=== PATIENT | female | born 1975 | race Caucasian/White ===

== ENCOUNTER → 2017-10-16 | Outpatient (CLI) | payer OTHER ==
[~2017-10-16] MED LIST: ESCI20; LISI10; METF500C; Norco 10-325 T1 EACH PO; Zofran Odt4 MG SL
== END | disposition home or self-care (01) ==
LOC: PLD 07:58 → LAB SHORT 07:58
DX: R87.619 Unspecified abnormal cytological findings in specimens from cervix uteri (principal)
CPT/HCPCS: 88305; 88342

== ENCOUNTER → 2018-03-30 | Outpatient (CLI) | payer OTHER | END | disposition home or self-care (01) | LOC: LAB EV 14:03 → LAB SHORT 14:03 | DX: L03.012 Cellulitis of left finger (principal) | CPT/HCPCS: 87070; 87075; 87077; 87147; 87186; 87205 ==

== ENCOUNTER 2018-06-01 18:41 | Emergency (ER) | payer OTHER ==
[~2018-06-01] VITALS: Ht 170.2 cm; Wt 97.5 kg
[2018-06-01] MEDS ORDERED: Prozac20 MG PO (19:16)
[2018-06-01 19:42] LABS: Source, Urine Clean Catch
[2018-06-01 19:50] LABS: Appearance, Urine Hazy (Clear); Bilirubin, Urine Neg (Neg); Blood, Urine 4+ (Neg); Color, Urine Yellow (P-Yellow); Glucose Qualitative, Urine 4+ (Neg); Ketones, Urine 3+ (Neg); Leukocyte Esterase, Urine 3+ (Neg); Nitrite, Urine Pos (Neg); Protein, Urine 2+ (Neg); Urobilinogen, Urine NORM (Normal)
[2018-06-01 20:00] LABS: White Blood Cells, Urine 25-50 /hpf (0-5)
[2018-06-01 20:01] LABS: Bacteria Mod /hpf; Squamous Epithelial Cells Few /hpf (Few)
[2018-06-01] MEDS ORDERED: Keflex500 MG PO (20:22)
== END 2018-06-01 20:50 | disposition home or self-care (01) ==
LOC: ER 18:41
PROVIDERS: Physician Assistant
DX: N39.0 Urinary tract infection, site not specified (principal); E11.9 Type 2 diabetes mellitus without complications; Z87.891 Personal history of nicotine dependence
CPT/HCPCS: 81001; 81025; 87077; 87086; 87186; 99283

== ENCOUNTER → 2018-09-05 | Outpatient (CLI) | payer OTHER ==
[~2018-09-05] MED LIST changes: +Keflex500 MG PO; +Prozac20 MG PO
[2018-09-05 18:05] LABS: Alanine Aminotransfer (ALT/SGP 21 U/L (12-78); Albumin, Blood 3.4 g/dL (3.4-5.0); Albumin/Globulin Ratio 0.9 (0.8-1.8); Alk Phos 88 U/L (40-126); Anion Gap 10 mmol/L (6-16); Aspartate Aminotrans (AST/SGOT 12 U/L (12-37); Bilirubin, Total 0.3 mg/dL (0.1-1.0); Blood Urea Nitrogen 16 mg/dL (8-24); Bun/Creatinine Ratio 21.3 (12.0-20.0); CO2, Blood 24 mmol/L (21-32); Calcium, Blood 8.7 mg/dL (8.5-10.1); Chloride, Blood 97 mmol/L (98-108); Creatinine, Blood 0.75 mg/dL (0.40-1.00); Globulin, Blood 3.9 g/dL (2.2-4.0); Glomerular Filtration Rate >60 (60-); Glucose, Blood 373 mg/dL (70-99); Potassium, Blood 4.1 mmol/L (3.5-5.5); Sodium, Blood 131 mmol/L (136-145); Total Protein, Blood 7.3 g/dL (6.4-8.2)
== END | disposition home or self-care (01) ==
LOC: LAB EV 17:51 → LAB SHORT 17:51
PROVIDERS: Physician Assistant
DX: R73.9 Hyperglycemia, unspecified (principal); R82.90 Unspecified abnormal findings in urine
CPT/HCPCS: 80053; 83036; 87077; 87086; 87186

== ENCOUNTER → 2018-10-30 | Outpatient (CLI) | payer OTHER | LOC: PLD 15:24 → LAB SHORT 15:24 | DX: R87.618 Other abnormal cytological findings on specimens from cervix uteri (principal) | CPT/HCPCS: 88305 ==

== ENCOUNTER 2020-10-31 11:57 | Inpatient (IN) | payer OTHER ==
[~2020-10-31] VITALS: Ht 170.2 cm; Wt 106.6 kg
[2020-10-31] MEDS ORDERED: AZIT250 PO (12:34)
[2020-10-31] MEDS ORDERED: IVERMECTIN3 MG PO (12:34)
[2020-10-31] MEDS ORDERED: PIOGLITAZONE HC45 MG PO (12:35)
[2020-10-31] MEDS ORDERED: Cetirizine HCl10 MG PO (12:36)
[2020-10-31] MEDS ORDERED: SEMGLEE PE100 UNIT/1 SC (12:36)
[2020-10-31] MEDS ORDERED: VITAMIN D5000 UNIT PO (12:37)
[2020-10-31] MEDS ORDERED: DULOXETINE HCL60 M1 PO (12:37)
[2020-10-31 12:41] LABS: BASOPHILS ABSOLUTE AUTO 0.01 K/mm3 (0.00-0.23); BASOPHILS PERCENT AUTO 0 % (0-2); EOSINOPHILS PERCENT AUTO 0 % (0-6); Hematocrit 39.2 % (33.0-51.0); Hemoglobin 13.2 g/dL (11.5-16.0); IMMATURE GRAN ABSOLUTE AUTO 0.02 K/mm3 (0.00-0.10); IMMATURE GRAN PERCENT AUTO 0 % (0-1); LYMPHOCYTES ABSOLUTE AUTO 0.63 K/mm3 (0.84-5.20); LYMPHOCYTES PERCENT AUTO 11 % (21-46); MONOCYTES ABSOLUTE AUTO 0.33 K/mm3 (0.16-1.47); MONOCYTES PERCENT AUTO 6 % (4-13); Mean Corpuscular HGB Conc 33.7 g/dL (31.5-36.5); Mean Corpuscular Volume 86 fL (80-100); Mean Platelet Volume 10.1 fL (9.1-12.4); NEUTROPHILS ABSOLUTE AUTO 4.69 K/mm3 (1.96-9.15); NEUTROPHILS PERCENT AUTO 83 % (41-73); Platelet Count 421 K/mm3 (150-400); RDW Coefficient Variation 13.2 % (11.7-14.2); RDW Standard Deviation 41.7 fL (35.1-46.3); Red Blood Cell Count 4.55 M/mm3 (3.80-5.20); White Blood Cell Count 5.68 K/mm3 (4.00-11.30)
[2020-10-31 13:08] LABS: Alanine Aminotransfer (ALT/SGP 27 U/L (12-78); Albumin, Blood 2.3 g/dL (3.4-5.0); Albumin/Globulin Ratio 0.5 (0.8-1.8); Alk Phos 54 U/L (50-136); Anion Gap 11 mmol/L (6-16); Aspartate Aminotrans (AST/SGOT 40 U/L (12-37); Bilirubin, Total 0.4 mg/dL (0.1-1.0); Blood Urea Nitrogen 17 mg/dL (8-24); CO2, Blood 24 mmol/L (21-32); Calcium, Blood 7.5 mg/dL (8.5-10.1); Chloride, Blood 98 mmol/L (98-108); Creatinine, Blood 0.68 mg/dL (0.40-1.00); Glomerular Filtration Rate >60 (60-); Glucose, Blood 317 mg/dL (70-99); Potassium, Blood 3.4 mmol/L (3.5-5.5); Sodium, Blood 133 mmol/L (136-145); Total Protein, Blood 7.3 g/dL (6.4-8.2); Troponin I <0.015 ng/mL (0.000-0.040)
[2020-10-31] MEDS ORDERED: METF500C PO (14:42)
--- NOTE | 2020-11-01 04:54 | NUR ---
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 ADMITTED FOR COVID 19. PT ARRIVED TO FLOOR ON 15L O2 VIA OXYMIZER. PT AAOX4 BUT VERY WEAK AND DESATS WITH MINIMAL MOVEMENT. O2 SATS 94-96% WHILE LAYING ON STOMACH/SIDE. CBG 300'S, MEDICATED WITH HUMULIN AND SEMGLEE PER EMAR. PT STATES NORMALLY HER CBG'S ARE 160'S TO LOW 200'S AT HOME. PT DID RECIEVE DECADRON AND SOLUMEDROL IN ED. PT CURRENTLY RESTING, WILL CONTINUE TO MONITOR.
[2020-11-01 05:16] LABS: BASOPHILS PERCENT AUTO 0 % (0-2); EOSINOPHILS PERCENT AUTO 0 % (0-6); Hematocrit 39.8 % (33.0-51.0); IMMATURE GRAN ABSOLUTE AUTO 0.03 K/mm3 (0.00-0.10); IMMATURE GRAN PERCENT AUTO 1 % (0-1); LYMPHOCYTES ABSOLUTE AUTO 0.59 K/mm3 (0.84-5.20); LYMPHOCYTES PERCENT AUTO 11 % (21-46); MONOCYTES ABSOLUTE AUTO 0.29 K/mm3 (0.16-1.47); MONOCYTES PERCENT AUTO 5 % (4-13); Mean Corpuscular HGB 28.7 pg (26.0-34.0); Mean Corpuscular HGB Conc 32.7 g/dL (31.5-36.5); Mean Corpuscular Volume 88 fL (80-100); NEUTROPHILS ABSOLUTE AUTO 4.43 K/mm3 (1.96-9.15); NEUTROPHILS PERCENT AUTO 83 % (41-73); Platelet Count 414 K/mm3 (150-400); RDW Coefficient Variation 13.2 % (11.7-14.2); Red Blood Cell Count 4.53 M/mm3 (3.80-5.20); White Blood Cell Count 5.34 K/mm3 (4.00-11.30)
[2020-11-01 05:46] LABS: Anion Gap 9 mmol/L (6-16); Blood Urea Nitrogen 30 mg/dL (8-24); CO2, Blood 22 mmol/L (21-32); Calcium, Blood 7.6 mg/dL (8.5-10.1); Chloride, Blood 105 mmol/L (98-108); Creatinine, Blood 0.65 mg/dL (0.40-1.00); Glomerular Filtration Rate >60 (60-); Glucose, Blood 341 mg/dL (70-99); Potassium, Blood 4.4 mmol/L (3.5-5.5); Sodium, Blood 136 mmol/L (136-145)
--- NOTE | 2020-11-01 17:05 | NUR ---
SHIFT SUMMARY AFTER MORNING ASSESSMENT PT REPORTED OVERWHELMING NEED TO GET UP TO SIDE OF BED. SATS SLOWLY INCREASED TO LOW 90'S AND HAS REMAINED SINCE SITTING ON SIDE OF BED AND IN CHAIR TODAY. THIS AFTERNOON LAYING IN BED NAPPING ON HER SIDE AND SATS HAVE REAMAINED MID 90'S. DECREASED O2 TO 13L/M BY OXMIZER AND TOLERATING WELL. SOB WITH ACTIVITY AND TIRES QUICKLY. POOR APPETITE. WILL OFFER SUPPLEMENTS WITH MEALS.
--- NOTE | 2020-11-02 05:00 | NUR ---
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 PT AAOX4. REMAINS ON 15L VIA OXYMIZER. PT HAS MAINTAINED O2 SATS BETWEEN 92-96%. HAS SLEPT WELL THROUGH THE NIGHT AND HAS MAINTAINED A GOOD POSITION ON HER STOMACH/SIDE. LUNGS COARSE, PT HAS OCCASIONAL PRODUCTIVE COUGH. CBG 234 AT BEDTIME. WILL CONTINUE TO MONITOR.
[2020-11-02 05:50] LABS: BASOPHILS PERCENT AUTO 0 % (0-2); EOSINOPHILS PERCENT AUTO 0 % (0-6); Hematocrit 37.6 % (33.0-51.0); Hemoglobin 12.5 g/dL (11.5-16.0); IMMATURE GRAN ABSOLUTE AUTO 0.06 K/mm3 (0.00-0.10); IMMATURE GRAN PERCENT AUTO 1 % (0-1); LYMPHOCYTES ABSOLUTE AUTO 0.66 K/mm3 (0.84-5.20); LYMPHOCYTES PERCENT AUTO 7 % (21-46); MONOCYTES ABSOLUTE AUTO 0.45 K/mm3 (0.16-1.47); MONOCYTES PERCENT AUTO 5 % (4-13); Mean Corpuscular HGB 28.9 pg (26.0-34.0); Mean Corpuscular HGB Conc 33.2 g/dL (31.5-36.5); Mean Corpuscular Volume 87 fL (80-100); NEUTROPHILS ABSOLUTE AUTO 8.51 K/mm3 (1.96-9.15); NEUTROPHILS PERCENT AUTO 88 % (41-73); Platelet Count 564 K/mm3 (150-400); RDW Coefficient Variation 13.3 % (11.7-14.2); RDW Standard Deviation 42.5 fL (35.1-46.3); Red Blood Cell Count 4.33 M/mm3 (3.80-5.20); White Blood Cell Count 9.68 K/mm3 (4.00-11.30)
[2020-11-02 06:13] LABS: Alanine Aminotransfer (ALT/SGP 24 U/L (12-78); Albumin/Globulin Ratio 0.4 (0.8-1.8); Alk Phos 61 U/L (50-136); Anion Gap 7 mmol/L (6-16); Aspartate Aminotrans (AST/SGOT 19 U/L (12-37); Bilirubin, Total 0.4 mg/dL (0.1-1.0); Blood Urea Nitrogen 24 mg/dL (8-24); Bun/Creatinine Ratio 53.2 (12.0-20.0); CO2, Blood 25 mmol/L (21-32); Calcium, Blood 7.7 mg/dL (8.5-10.1); Chloride, Blood 105 mmol/L (98-108); Creatinine, Blood 0.45 mg/dL (0.40-1.00); Globulin, Blood 4.8 g/dL (2.2-4.0); Glomerular Filtration Rate >60 (60-); Glucose, Blood 249 mg/dL (70-99); Lactate Dehydrogenase (Ld),Bld 290 U/L (100-240); Potassium, Blood 4.1 mmol/L (3.5-5.5); Sodium, Blood 137 mmol/L (136-145); Total Protein, Blood 6.8 g/dL (6.4-8.2)
--- NOTE | 2020-11-02 18:38 | NUR ---
PT IS A/OX4, PLEASANT AND COOPERATIVE, THE PT'S O2 HAS BEEN TITRATED DOWN TO 9L/MIN FOR 15L/MIN THIS AM, THE PT FEELS WEAK AND TIRED TODAY. THE PT HAS BEEN UP RAUL THE CHAIRS FOR MEALS. THIS AFTERNOON THE PT HAS BEEN MOSTLY LYING DOWN IN BED. THE PT DENIED ANY PAIN T/O THE DAY. CALL LIGHT IN REACH. WILL CONTINUE TO MONITOR AND ASSESS FOR CHANGES
[2020-11-03 05:52] LABS: BASOPHILS ABSOLUTE AUTO 0.01 K/mm3 (0.00-0.23); BASOPHILS PERCENT AUTO 0 % (0-2); EOSINOPHILS PERCENT AUTO 0 % (0-6); Hemoglobin 18.9 g/dL (11.5-16.0); IMMATURE GRAN ABSOLUTE AUTO 0.03 K/mm3 (0.00-0.10); IMMATURE GRAN PERCENT AUTO 1 % (0-1); LYMPHOCYTES ABSOLUTE AUTO 0.45 K/mm3 (0.84-5.20); LYMPHOCYTES PERCENT AUTO 8 % (21-46); MONOCYTES ABSOLUTE AUTO 0.36 K/mm3 (0.16-1.47); MONOCYTES PERCENT AUTO 7 % (4-13); Mean Corpuscular HGB 28.3 pg (26.0-34.0); Mean Corpuscular HGB Conc 33.3 g/dL (31.5-36.5); Mean Corpuscular Volume 85 fL (80-100); Mean Platelet Volume 10.2 fL (9.1-12.4); NEUTROPHILS ABSOLUTE AUTO 4.56 K/mm3 (1.96-9.15); NEUTROPHILS PERCENT AUTO 84 % (41-73); Platelet Count 302 K/mm3 (150-400); RDW Coefficient Variation 13.9 % (11.7-14.2); RDW Standard Deviation 41.2 fL (35.1-46.3); Red Blood Cell Count 6.69 M/mm3 (3.80-5.20); White Blood Cell Count 5.41 K/mm3 (4.00-11.30)
[2020-11-03 05:55] LABS: Hematocrit 56.8 % (33.0-51.0)
[2020-11-03 06:40] LABS: Alanine Aminotransfer (ALT/SGP 22 U/L (12-78); Albumin, Blood 1.9 g/dL (3.4-5.0); Albumin/Globulin Ratio 0.4 (0.8-1.8); Alk Phos 61 U/L (50-136); Anion Gap 7 mmol/L (6-16); Aspartate Aminotrans (AST/SGOT 21 U/L (12-37); Bilirubin, Total 0.3 mg/dL (0.1-1.0); Blood Urea Nitrogen 25 mg/dL (8-24); Bun/Creatinine Ratio 60.5 (12.0-20.0); CO2, Blood 26 mmol/L (21-32); Calcium, Blood 7.8 mg/dL (8.5-10.1); Chloride, Blood 106 mmol/L (98-108); Creatinine, Blood 0.41 mg/dL (0.40-1.00); Globulin, Blood 4.6 g/dL (2.2-4.0); Glomerular Filtration Rate >60 (60-); Glucose, Blood 216 mg/dL (70-99); Potassium, Blood 4.1 mmol/L (3.5-5.5); Sodium, Blood 139 mmol/L (136-145); Total Protein, Blood 6.5 g/dL (6.4-8.2)
--- NOTE | 2020-11-03 07:15 | NUR ---
SHIFT SUMMARY- PT. SOB W/SATS IN LOW 80'S. O2 INCREASED TO 15L AND PT. REPOSITIONED TO PRONE. SATS IMPROVED 92-95%. PT. REMAINED PRONE AND SIDE LYING T/O THE NIGHT. DENIED ANY C/O PAIN OR DISCOMFORT. RESTED QUIETLY THE REST OF THE NIGHT, NO APPARENT DISTRESS NOTED.
--- NOTE | 2020-11-03 19:16 | NUR ---
PT IS A/OX3, PLEASANT AND COOPERATIVE, THE PT IS UP IND IN HER ROOM. THE PT FEELS WEAK AND TIRED HAS A POOR APPETITE. DENIES N/V OR PAIN. PT IS SOB WITH MINIMAL ACTIVITY. THE PTS O2 WAS TITRATED DOWN TO 10L/MIN FROM 15L/MIN VIA OXYMIZER O2 SAT'S STAYED 88 -94%. CALL LIGHT IN REACH. WILL CONTINUE TO MONITOR AND ASSESS FOR CHANGES
[2020-11-04 05:50] LABS: BASOPHILS ABSOLUTE AUTO 0.01 K/mm3 (0.00-0.23); BASOPHILS PERCENT AUTO 0 % (0-2); EOSINOPHILS PERCENT AUTO 0 % (0-6); Hematocrit 39.6 % (33.0-51.0); IMMATURE GRAN ABSOLUTE AUTO 0.08 K/mm3 (0.00-0.10); IMMATURE GRAN PERCENT AUTO 1 % (0-1); LYMPHOCYTES ABSOLUTE AUTO 0.77 K/mm3 (0.84-5.20); LYMPHOCYTES PERCENT AUTO 11 % (21-46); MONOCYTES ABSOLUTE AUTO 0.52 K/mm3 (0.16-1.47); MONOCYTES PERCENT AUTO 8 % (4-13); Mean Corpuscular HGB 28.6 pg (26.0-34.0); Mean Corpuscular HGB Conc 32.8 g/dL (31.5-36.5); Mean Corpuscular Volume 87 fL (80-100); Mean Platelet Volume 9.8 fL (9.1-12.4); NEUTROPHILS ABSOLUTE AUTO 5.49 K/mm3 (1.96-9.15); NEUTROPHILS PERCENT AUTO 80 % (41-73); Platelet Count 711 K/mm3 (150-400); RDW Coefficient Variation 13.3 % (11.7-14.2); RDW Standard Deviation 42.6 fL (35.1-46.3); Red Blood Cell Count 4.55 M/mm3 (3.80-5.20); White Blood Cell Count 6.87 K/mm3 (4.00-11.30)
--- NOTE | 2020-11-04 05:54 | NUR ---
SHIFT SUMMARY- PT. INCREASED TO 15L OXYMIZER LAST NIGHT. MAINTAINED SATS @90-93%. SLEPT PRONE AND SIDE LYING MOST OF THE NIGHT, DENIED ANY COMPLAINTS. CALL LIGHT WITHIN REACH AND SIDE RAILS UPX2. WILL CONT TO MONITOR.
[2020-11-04 06:42] LABS: Alanine Aminotransfer (ALT/SGP 22 U/L (12-78); Albumin/Globulin Ratio 0.4 (0.8-1.8); Alk Phos 60 U/L (50-136); Anion Gap 6 mmol/L (6-16); Aspartate Aminotrans (AST/SGOT 14 U/L (12-37); Bilirubin, Total 0.5 mg/dL (0.1-1.0); Blood Urea Nitrogen 26 mg/dL (8-24); Bun/Creatinine Ratio 55.9 (12.0-20.0); CO2, Blood 29 mmol/L (21-32); Calcium, Blood 8.1 mg/dL (8.5-10.1); Chloride, Blood 104 mmol/L (98-108); Creatinine, Blood 0.47 mg/dL (0.40-1.00); Globulin, Blood 4.5 g/dL (2.2-4.0); Glomerular Filtration Rate >60 (60-); Glucose, Blood 187 mg/dL (70-99); Potassium, Blood 4.1 mmol/L (3.5-5.5); Sodium, Blood 139 mmol/L (136-145); Total Protein, Blood 6.5 g/dL (6.4-8.2)
--- NOTE | 2020-11-04 09:31 | NUR ---
Updated notes from [facility] Update 11/03/20: Per chart review, pt. continues to required high flow O2. Last vitals 0749 88% on 15L oxymizer. Anticipate needs at discharge to likely include O2 and potentially samples of Xarelto or Eliquis. No yet appropriate for discharge. Will continue to follow patients care and provide care coordination as needed. Update 11/02/20: Per chart review, Oxygen requirement has decreased from 15L to 11L per chart notes. Pt. does not have CPAP with her and stated that she does not have anyone who can drop it off. No D/C date at this time. Pt. could potentially need O2 at time of discharge. No other needs anticipated at this time. Update 11/01/20: Per chart review, pt. still requiring high flow O2. 15L bubbler per chart note. Pt. has hx. of CARLOS. Uses CPAP at home.
--- NOTE | 2020-11-04 16:50 | NUR ---
PT IS A/OX4, PLEASANT AND COOPERATIVE, THE PT IS UP IND IN HER ROOM TO THE CHAIR. THE PT IS TITRATED TO 11L/MIN O2 AT THIS TIME DOWN FROM 15L/MIN. THE PT'S O2 SAT'S DROP SOMEWHAT WITH EXCERTION HOWEVER THE PT RECOVERS QUIKLY. THE PT OVER ALL FEELS VERY TIRED AND HAS NO APPETITE. THE PT HAS NOT HAD A BM FOR SEVERAL DAYS, MOM WAS OFFERED HOWEVER THE PT DECLINED. PT DENIES ANY PAIN OR NAUSEA. THE PT IS COUGHING UO SMALL AMOUNTS OF THICK BROWN COLORED SPUTUM. CALL LIGHT IN REACH. WILL CONITIUE TO MONITOR AND ASSESS FOR CHANGES
[2020-11-05 05:41] LABS: BASOPHILS ABSOLUTE AUTO 0.02 K/mm3 (0.00-0.23); BASOPHILS PERCENT AUTO 0 % (0-2); EOSINOPHILS PERCENT AUTO 0 % (0-6); Hematocrit 39.2 % (33.0-51.0); Hemoglobin 12.9 g/dL (11.5-16.0); IMMATURE GRAN ABSOLUTE AUTO 0.15 K/mm3 (0.00-0.10); IMMATURE GRAN PERCENT AUTO 2 % (0-1); LYMPHOCYTES ABSOLUTE AUTO 0.85 K/mm3 (0.84-5.20); LYMPHOCYTES PERCENT AUTO 11 % (21-46); MONOCYTES ABSOLUTE AUTO 0.73 K/mm3 (0.16-1.47); MONOCYTES PERCENT AUTO 9 % (4-13); Mean Corpuscular HGB 28.4 pg (26.0-34.0); Mean Corpuscular HGB Conc 32.9 g/dL (31.5-36.5); Mean Corpuscular Volume 86 fL (80-100); Mean Platelet Volume 9.7 fL (9.1-12.4); NEUTROPHILS ABSOLUTE AUTO 6.02 K/mm3 (1.96-9.15); NEUTROPHILS PERCENT AUTO 78 % (41-73); Platelet Count 713 K/mm3 (150-400); Red Blood Cell Count 4.54 M/mm3 (3.80-5.20); White Blood Cell Count 7.77 K/mm3 (4.00-11.30)
[2020-11-05 06:17] LABS: Alanine Aminotransfer (ALT/SGP 27 U/L (12-78); Albumin, Blood 1.9 g/dL (3.4-5.0); Albumin/Globulin Ratio 0.5 (0.8-1.8); Alk Phos 57 U/L (50-136); Anion Gap 6 mmol/L (6-16); Aspartate Aminotrans (AST/SGOT 22 U/L (12-37); Bilirubin, Total 0.4 mg/dL (0.1-1.0); Blood Urea Nitrogen 22 mg/dL (8-24); Bun/Creatinine Ratio 48.7 (12.0-20.0); CO2, Blood 29 mmol/L (21-32); Calcium, Blood 7.9 mg/dL (8.5-10.1); Chloride, Blood 102 mmol/L (98-108); Creatinine, Blood 0.45 mg/dL (0.40-1.00); Globulin, Blood 4.2 g/dL (2.2-4.0); Glomerular Filtration Rate >60 (60-); Glucose, Blood 208 mg/dL (70-99); Sodium, Blood 137 mmol/L (136-145); Total Protein, Blood 6.1 g/dL (6.4-8.2)
--- NOTE | 2020-11-05 06:53 | NUR ---
SHIFT SUMMARY- PT. ON 13L OXYMIZER, SATS MAINTAINED. PT. SLEPT T/O THE NIGHT, NO APPARENT DISTRESS NOTED. DENIED NEEDS DURING THE NIGHT, VSS. CALL LIGHT WITHIN REACH AND SIDE RAILS UPX2. WILL CONT TO MONITOR.
[2020-11-06 05:14] LABS: BASOPHILS ABSOLUTE AUTO 0.02 K/mm3 (0.00-0.23); BASOPHILS PERCENT AUTO 0 % (0-2); EOSINOPHILS ABSOLUTE AUTO 0.01 K/mm3 (0.00-0.68); EOSINOPHILS PERCENT AUTO 0 % (0-6); Hematocrit 42.3 % (33.0-51.0); Hemoglobin 13.9 g/dL (11.5-16.0); IMMATURE GRAN PERCENT AUTO 2 % (0-1); LYMPHOCYTES PERCENT AUTO 11 % (21-46); MONOCYTES ABSOLUTE AUTO 0.75 K/mm3 (0.16-1.47); MONOCYTES PERCENT AUTO 9 % (4-13); Mean Corpuscular HGB 28.5 pg (26.0-34.0); Mean Corpuscular HGB Conc 32.9 g/dL (31.5-36.5); Mean Corpuscular Volume 87 fL (80-100); Mean Platelet Volume 9.6 fL (9.1-12.4); NEUTROPHILS ABSOLUTE AUTO 6.33 K/mm3 (1.96-9.15); NEUTROPHILS PERCENT AUTO 77 % (41-73); Platelet Count 698 K/mm3 (150-400); RDW Coefficient Variation 12.9 % (11.7-14.2); RDW Standard Deviation 41.1 fL (35.1-46.3); Red Blood Cell Count 4.87 M/mm3 (3.80-5.20); White Blood Cell Count 8.21 K/mm3 (4.00-11.30)
[2020-11-06 05:38] LABS: Alanine Aminotransfer (ALT/SGP 54 U/L (12-78); Albumin, Blood 1.9 g/dL (3.4-5.0); Albumin/Globulin Ratio 0.5 (0.8-1.8); Alk Phos 56 U/L (50-136); Anion Gap 5 mmol/L (6-16); Aspartate Aminotrans (AST/SGOT 38 U/L (12-37); Bilirubin, Total 0.4 mg/dL (0.1-1.0); Blood Urea Nitrogen 19 mg/dL (8-24); Bun/Creatinine Ratio 45.2 (12.0-20.0); CO2, Blood 29 mmol/L (21-32); Calcium, Blood 8.5 mg/dL (8.5-10.1); Chloride, Blood 101 mmol/L (98-108); Creatinine, Blood 0.42 mg/dL (0.40-1.00); Globulin, Blood 4.2 g/dL (2.2-4.0); Glomerular Filtration Rate >60 (60-); Glucose, Blood 212 mg/dL (70-99); Potassium, Blood 4.4 mmol/L (3.5-5.5); Sodium, Blood 135 mmol/L (136-145); Total Protein, Blood 6.1 g/dL (6.4-8.2)
--- NOTE | 2020-11-06 17:52 | NUR ---
SHIFT SUMMARY NO ACUTE CHANGES, A&O. DENIES ANY DISTRESS. TITRATED DOWN TO 7 L/MIN HF, SATING ABOVE 90%. GOOD ORAL INTAKE, BM TODAY. CBG IN 300'S, INSULIN GIVEN PER EMAR. CALL LIGHT WITHIN REACH, CALLS APPROPRIATELY.
--- NOTE | 2020-11-06 19:30 | NUR ---
ASSUMED CARE RECEIVED REPORT FROM EDWIN WATKINS. PT RESTING, IN NAD. NO ACUTE NEEDS ASSESSED AT THIS TIME. CALL LIGHT, POSSESSIONS IN REACH.
[2020-11-07 05:41] LABS: BASOPHILS ABSOLUTE AUTO 0.03 K/mm3 (0.00-0.23); BASOPHILS PERCENT AUTO 0 % (0-2); EOSINOPHILS ABSOLUTE AUTO 0.07 K/mm3 (0.00-0.68); EOSINOPHILS PERCENT AUTO 1 % (0-6); IMMATURE GRAN ABSOLUTE AUTO 0.29 K/mm3 (0.00-0.10); IMMATURE GRAN PERCENT AUTO 3 % (0-1); LYMPHOCYTES PERCENT AUTO 8 % (21-46); MONOCYTES ABSOLUTE AUTO 0.81 K/mm3 (0.16-1.47); MONOCYTES PERCENT AUTO 8 % (4-13); Mean Corpuscular HGB 28.8 pg (26.0-34.0); Mean Corpuscular HGB Conc 33.3 g/dL (31.5-36.5); Mean Corpuscular Volume 86 fL (80-100); NEUTROPHILS ABSOLUTE AUTO 7.91 K/mm3 (1.96-9.15); NEUTROPHILS PERCENT AUTO 80 % (41-73); Platelet Count 754 K/mm3 (150-400); RDW Coefficient Variation 12.7 % (11.7-14.2); RDW Standard Deviation 40.4 fL (35.1-46.3); Red Blood Cell Count 4.86 M/mm3 (3.80-5.20); White Blood Cell Count 9.91 K/mm3 (4.00-11.30)
[2020-11-07 06:06] LABS: Alanine Aminotransfer (ALT/SGP 77 U/L (12-78); Albumin/Globulin Ratio 0.5 (0.8-1.8); Alk Phos 56 U/L (50-136); Anion Gap 6 mmol/L (6-16); Aspartate Aminotrans (AST/SGOT 47 U/L (12-37); Bilirubin, Total 0.3 mg/dL (0.1-1.0); Blood Urea Nitrogen 18 mg/dL (8-24); Bun/Creatinine Ratio 40.7 (12.0-20.0); CO2, Blood 31 mmol/L (21-32); Calcium, Blood 8.4 mg/dL (8.5-10.1); Chloride, Blood 98 mmol/L (98-108); Creatinine, Blood 0.44 mg/dL (0.40-1.00); Globulin, Blood 4.2 g/dL (2.2-4.0); Glomerular Filtration Rate >60 (60-); Glucose, Blood 220 mg/dL (70-99); Sodium, Blood 135 mmol/L (136-145); Total Protein, Blood 6.2 g/dL (6.4-8.2)
--- NOTE | 2020-11-07 08:16 | NUR ---
SHIFT SUMMARY PT RESTING, IN NAD. NO ACUTE CHANGES TO REPORT OVERNIGHT, VS REVIEWED,WNL; O2 SATS WNL ON 7L/HFNC. DENIES PAIN. CALL LIGHT, POSSESSIONS IN REACH, BED IN LOW AND LOCKED POSITION. REPORT GIVEN TO EDWIN HORTA.
--- NOTE | 2020-11-07 17:17 | NUR ---
Update 11/07/20: Per chart review, pt. appears to be tolerating 2 LPM O2 via NC with SPO2 at 94%. Day 16 of hospitalization. Anticipate discharge needs to be samples of Xarelto/Eliquis and possible O2 at time of discharge. Potential to discharge within the next 24-48 hours.
--- NOTE | 2020-11-07 19:41 | NUR ---
PT IS A/OX4, PLEASANT AND COOPERATIVE. THE PT IS UP IND IN HER ROOM SOB WITH EXCERTION. THE PTS O2 WAS TIRATED DOWN TO 2L/MIN VIA NC FROM 7L/MIN VIA OXYMIZER. THE PTS O2 SATS ARE 92-94% THIS EVENING. PT DENIED ANY PAIN CALL LIGHT IN REACH, WILL CONTINUE TO MONITOR AND ASSESS FOR CHANGES
[2020-11-08 05:25] LABS: BASOPHILS ABSOLUTE AUTO 0.01 K/mm3 (0.00-0.23); BASOPHILS PERCENT AUTO 0 % (0-2); EOSINOPHILS ABSOLUTE AUTO 0.04 K/mm3 (0.00-0.68); EOSINOPHILS PERCENT AUTO 1 % (0-6); Hemoglobin 14.1 g/dL (11.5-16.0); IMMATURE GRAN PERCENT AUTO 2 % (0-1); LYMPHOCYTES ABSOLUTE AUTO 0.92 K/mm3 (0.84-5.20); LYMPHOCYTES PERCENT AUTO 11 % (21-46); MONOCYTES PERCENT AUTO 8 % (4-13); Mean Corpuscular HGB 28.8 pg (26.0-34.0); Mean Corpuscular HGB Conc 32.8 g/dL (31.5-36.5); Mean Corpuscular Volume 88 fL (80-100); Mean Platelet Volume 10.1 fL (9.1-12.4); NEUTROPHILS ABSOLUTE AUTO 6.48 K/mm3 (1.96-9.15); NEUTROPHILS PERCENT AUTO 78 % (41-73); Platelet Count 667 K/mm3 (150-400); RDW Standard Deviation 41.5 fL (35.1-46.3); White Blood Cell Count 8.35 K/mm3 (4.00-11.30)
[2020-11-08 05:58] LABS: Alanine Aminotransfer (ALT/SGP 79 U/L (12-78); Albumin, Blood 2.1 g/dL (3.4-5.0); Albumin/Globulin Ratio 0.5 (0.8-1.8); Alk Phos 52 U/L (50-136); Anion Gap 5 mmol/L (6-16); Aspartate Aminotrans (AST/SGOT 37 U/L (12-37); Bilirubin, Total 0.3 mg/dL (0.1-1.0); Blood Urea Nitrogen 19 mg/dL (8-24); Bun/Creatinine Ratio 39.7 (12.0-20.0); CO2, Blood 32 mmol/L (21-32); Calcium, Blood 8.6 mg/dL (8.5-10.1); Chloride, Blood 98 mmol/L (98-108); Creatinine, Blood 0.48 mg/dL (0.40-1.00); Globulin, Blood 4.2 g/dL (2.2-4.0); Glomerular Filtration Rate >60 (60-); Glucose, Blood 182 mg/dL (70-99); Potassium, Blood 4.7 mmol/L (3.5-5.5); Sodium, Blood 135 mmol/L (136-145); Total Protein, Blood 6.3 g/dL (6.4-8.2)
--- NOTE | 2020-11-08 06:06 | NUR ---
SUMMARY: PT A/OX4, IS PLEASANT AND COOPERATIVE W/CARE AND INDEPENDENT IN ROOM. SHE REMAINS SOB W/EXERTION AND REPORTS SHALLOW RESPS D/T CHEST TIGHTNESS. SPO2>92% ON 2L VIA NC, OCC DESATS OBSERVED W/MOBILITY. NO ACUTE CHANGES, VSS AND AFEBRILE. WCTM AND REPORT TO DAY RN.
--- NOTE | 2020-11-08 15:59 | NUR ---
PT IS A/OX4, PLEASANT AND COOPERATIVE. THE PT WAS WEANED OFF O2 T/O THE DAY AND IS NOW ON RA AT THIS TIME. THE PT WAS UP WITH REPIRATORY THERAPIST FOR HOME O2 EVAL AND DID NOT REQUIR O2. THE PT DENIED ANY PAIN T/O THE DAY. CALL LIGHT IN REACH. PT TO BE DISCHARGED THIS EVENING.
--- NOTE | 2020-11-08 17:04 | NUR ---
Update 11/08/20 Pt. appropriate for discharge per chart review with Dr. Claudio. Hospital F/U scheduled on 11/11/[address] Dhillon via telehealth. O2 requested through [facility]. Pt. had low O2 sats around 91% this am. SATS improved per home O2 assessment, however; there is concern that pt. may become SOB. O2 was already requested and pt. agreeable to having bottle available. Pt. given samples of Elquis at discharge 2.5mg BID x 30 days. No additional needs at this time.
[2020-11-08] MEDS ORDERED: Acerola C500 MG PO (17:05)
[2020-11-08] MEDS ORDERED: FAMO40 PO (17:06)
[2020-11-08] MEDS ORDERED: HUMULIN R100 UNIT/2 SC (17:10)
[2020-11-08] MEDS ORDERED: MONT10T PO (17:10)
[2020-11-08] MEDS ORDERED: ORAZINC220 MG PO (17:11)
[2020-11-08] MEDS ORDERED: CEFP200 PO (17:13)
[2020-11-08] MEDS ORDERED: ELIQUIS2.5 MG PO (17:13)
[2020-11-08] MEDS ORDERED: PRED20 PO (17:17)
--- NOTE | 2020-11-08 18:12 | NUR ---
PT DISCHARGED PT VERBALIZED UNDERSTANDING OF THE DC INSTRUCTIONS. THE PT WAS TRANSFERED VIA WHEELCHAIR ON RA AT THE TIME OF DC. OXYGEN WAS DELIVERED TO THE ROOM IN CASE THE PT NEEDS IT LATER. PTS PRESCIPTIONS WERE FAXED TO HER PHARMACY. YONATAN SCHEDULED A FOLLOW UP APPOINTMENT PRIOR TO DC. THE PT WAS ACCOMPANIED BY THE [employer] EQUIPMENT INSTALLER TO THE FRONT TO MEET HER RIDE HOME
== END 2020-11-08 18:09 | disposition home or self-care (01) | DRG 871 ==
LOC: ER 11:57 → ERHOLD 15:39 → MEDS 21:39
PROVIDERS: Emergency Medicine; ADMIT Family Medicine
PROC: 8E0ZXY6 Isolation (ICD-10-PCS; principal; 2020-10-31)
PROC: 5A0945A Assistance with Respiratory Ventilation, 24-96 Consecutive Hours, High Flow/Velocity Cannula (ICD-10-PCS; 2020-10-31)
PROC: 3E0333Z Introduction of Anti-inflammatory into Peripheral Vein, Percutaneous Approach (ICD-10-PCS; 2020-10-31)
PROC: 3E03329 Introduction of Other Anti-infective into Peripheral Vein, Percutaneous Approach (ICD-10-PCS; 2020-10-31)
DX: A41.89 Other specified sepsis (principal); U07.1 COVID-19; J96.01 Acute respiratory failure with hypoxia; E87.4 Mixed disorder of acid-base balance; E87.6 Hypokalemia; E66.9 Obesity, unspecified; E11.65 Type 2 diabetes mellitus with hyperglycemia; G47.33 Obstructive sleep apnea (adult) (pediatric); T38.0X5A Adverse effect of glucocorticoids and synthetic analogues, initial encounter; E11.319 Type 2 diabetes mellitus with unspecified diabetic retinopathy without macular edema; F41.9 Anxiety disorder, unspecified; L73.2 Hidradenitis suppurativa; M54.5 Low back pain; E11.42 Type 2 diabetes mellitus with diabetic polyneuropathy; E55.9 Vitamin D deficiency, unspecified; Z90.49 Acquired absence of other specified parts of digestive tract; Z98.890 Other specified postprocedural states; F32.9 Major depressive disorder, single episode, unspecified; Z68.36 Body mass index [BMI] 36.0-36.9, adult; Z87.891 Personal history of nicotine dependence; Z79.4 Long term (current) use of insulin; Z79.899 Other long term (current) drug therapy; E73.9 Lactose intolerance, unspecified; G47.10 Hypersomnia, unspecified; Z91.018 Allergy to other foods; E88.09 Other disorders of plasma-protein metabolism, not elsewhere classified
CPT/HCPCS: 36415; 71045; 71260; 80048; 80053; 82947; 83605; 83615; 84484; 85025; 86140; 86141; 93005; 93010; 94761; 94762; 96361; 96374; 96375; 99285-25; A9270; J0456; J0696; J1100; J1650; J1815; J1885; J2920; J2930; J7030; J7050; Q9967

== ENCOUNTER → 2021-02-15 | Outpatient (CLI) | payer OTHER ==
[~2021-02-15] MED LIST changes: +AZIT250 PO; +Acerola C500 MG PO; +CEFP200 PO; +Cetirizine HCl10 MG PO; +DULOXETINE HCL60 M1 PO; +ELIQUIS2.5 MG PO; +FAMO40 PO; +HUMULIN R100 UNIT/2 SC; +IVERMECTIN3 MG PO; +METF500C PO; +MONT10T PO; +ORAZINC220 MG PO; +PIOGLITAZONE HC45 MG PO; +PRED20 PO; +SEMGLEE PE100 UNIT/1 SC; +VITAMIN D5000 UNIT PO
== END | disposition home or self-care (01) ==
LOC: LAB 07:28 → LAB SHORT 07:28
DX: Z09 Encounter for follow-up examination after completed treatment for conditions other than malignant neoplasm (principal); Z87.42 Personal history of other diseases of the female genital tract
CPT/HCPCS: 88305

== ENCOUNTER → 2021-06-07 | Outpatient (CLI) | payer OTHER ==
[2021-06-08 09:18] LABS: Candida species (DNA Probe) Negative (NEGATIVE); G. vaginalis (DNA Probe) Negative (NEGATIVE); T. vaginalis (DNA Probe) Negative (NEGATIVE)
== END | disposition home or self-care (01) ==
LOC: LAB SHORT 12:34
PROVIDERS: Obstetrics & Gynecology
DX: N89.8 Other specified noninflammatory disorders of vagina (principal)
CPT/HCPCS: 87480; 87510; 87660

== ENCOUNTER → 2021-06-28 | Outpatient (CLI) | payer OTHER | END | disposition home or self-care (01) | LOC: LAB 18:19 → LAB SHORT 18:19 | DX: N39.0 Urinary tract infection, site not specified (principal) | CPT/HCPCS: 87077; 87086; 87186 ==

== ENCOUNTER → 2021-08-31 | Outpatient (CLI) | payer OTHER ==
[2021-09-01 08:23] LABS: Candida species (DNA Probe) Positive (NEGATIVE); G. vaginalis (DNA Probe) Negative (NEGATIVE); T. vaginalis (DNA Probe) Negative (NEGATIVE)
== END | disposition home or self-care (01) ==
LOC: LAB SHORT 15:57 → LAB 15:57
PROVIDERS: Obstetrics & Gynecology
DX: N76.0 Acute vaginitis (principal)
CPT/HCPCS: 87480; 87510; 87660

== ENCOUNTER → 2022-03-22 | Outpatient (CLI) | payer OTHER | END | disposition home or self-care (01) | LOC: LAB SHORT 12:56 | DX: R87.619 Unspecified abnormal cytological findings in specimens from cervix uteri (principal) | CPT/HCPCS: 88305 ==

== ENCOUNTER → 2022-11-15 | Outpatient (CLI) | payer OTHER ==
[2022-11-16 08:18] LABS: Candida species (DNA Probe) Negative (NEGATIVE); G. vaginalis (DNA Probe) Negative (NEGATIVE); T. vaginalis (DNA Probe) Negative (NEGATIVE)
== END | disposition home or self-care (01) ==
LOC: LAB SHORT 18:27 → LAB 18:27
PROVIDERS: Obstetrics & Gynecology
DX: N76.0 Acute vaginitis (principal)
CPT/HCPCS: 87480; 87510; 87660

== ENCOUNTER → 2022-11-23 | Outpatient (CLI) | payer OTHER ==
[2022-11-24 12:08] LABS: Candida species (DNA Probe) Negative (NEGATIVE); G. vaginalis (DNA Probe) Negative (NEGATIVE); T. vaginalis (DNA Probe) Negative (NEGATIVE)
== END | disposition home or self-care (01) ==
LOC: LAB SHORT 16:17 → LAB 16:17
PROVIDERS: Advanced Practice Midwife
DX: N76.0 Acute vaginitis (principal)
CPT/HCPCS: 87480; 87510; 87660

== ENCOUNTER → 2024-04-14 | Outpatient (CLI) | payer OTHER ==
[~2024-04-14] MED LIST changes: +GABA300 PO; +Prozac40 MG PO; +[UNRECOGNIZED DRUG - CODE] PO
[2024-04-15 15:57] LABS: Stool Occult Bld Immuno 1 Negative (NEGATIVE)
== END | disposition home or self-care (01) ==
LOC: LAB SHORT 15:40 → LAB 15:40
PROVIDERS: Family Medicine
DX: Z12.11 Encounter for screening for malignant neoplasm of colon (principal)
CPT/HCPCS: G0328

== ENCOUNTER → 2025-01-07 | Outpatient (CLI) | payer OTHER ==
[2025-01-07 19:31] LABS: Creatinine, Urine Random 42.4 mg/dL (27.00-270.00); Microalb/Creat Ratio UR, Rand 17.429 mg/g (0.000-30.000); Microalbumin, Random Urine 7.39 mg/L (0.000-20.000)
== END ==
LOC: LAB SHORT 17:03 → LAB 17:03
PROVIDERS: Family Medicine
DX: E11.65 Type 2 diabetes mellitus with hyperglycemia (principal); E11.3311 Type 2 diabetes mellitus with moderate nonproliferative diabetic retinopathy with macular edema, right eye; E11.3412 Type 2 diabetes mellitus with severe nonproliferative diabetic retinopathy with macular edema, left eye; E11.69 Type 2 diabetes mellitus with other specified complication; Z79.4 Long term (current) use of insulin
CPT/HCPCS: 82043; 82570